=== PATIENT | male | born 1970 | race Caucasian/White ===

== ENCOUNTER 2017-03-21 22:48 | Inpatient (IN) | payer BC, OTHER ==
[~2017-03-21] VITALS: Ht 193 cm; Wt 136.1 kg
[2017-03-22] MEDS ORDERED: LORAZEPAM 2 MG/1 ML VIAL IM PRN (14:45)
[2017-03-22] MEDS ORDERED: LOPERAMIDE HCL 2 MG CAPSULE PO PRN (14:45)
[2017-03-22] MEDS ORDERED: MAG HYDROX/AL HYDROX/SIMETH 30 ML LIQUID UDC PO PRN (14:45)
[2017-03-22] MEDS ORDERED: ONDANSETRON 4 MG/2 ML VIAL IM PRN (14:45)
[2017-03-22] MEDS ORDERED: MAGNESIUM HYDROXIDE 30 ML LIQUID UDC PO PRN (14:45)
[2017-03-22] MEDS ORDERED: ACETAMINOPHEN 325 MG TABLET PO PRN (14:45)
[2017-03-22] MEDS ORDERED: LORAZEPAM 1 MG TABLET PO PRN (14:45)
[2017-03-22] MEDS ORDERED: DICYCLOMINE HCL 20 MG TABLET PO PRN (14:45)
[2017-03-22] MEDS ORDERED: MIRALAX 17 GM POWD.PACK PO PRN (14:45)
[2017-03-22 15:31] VITALS: BP 136/101
[2017-03-22] MEDS ORDERED: THIAMINE HCL 200 MG/2 ML VIAL IM ONE (15:36)
[2017-03-22 15:56] LABS: BASOPHILS % (AUTO) 0.2 % (0.0-2.0); EOSINOPHILS % (AUTO) 0.2 % (0.0-7.0); LYMPHOCYTES % (AUTO) 25.6 % (20.5-51.5); MEAN CORPUSCULAR HGB CONC 33 g/dL (32.0-37.0); MEAN CORPUSCULAR VOLUME 84.1 FL (82.0-92.0); MONOCYTES # (AUTO) 0.3 K/UL (0.1-1.30); MONOCYTES % (AUTO) 2.7 % (0.0-11.0); NEUTROPHILS # (AUTO) 8.4 K/UL (1.8-8.9); NEUTROPHILS % (AUTO) 71.3 % (38.5-71.5); PLATELET COUNT (AUTO) 370 K/UL (150-450); RED BLOOD CELL COUNT(AUTO) 6.07 MIL/UL (4.7-6.1); WHITE BLOOD COUNT (AUTO) 11.7 K/UL (4.0-11.2)
[2017-03-22 16:04] LABS: POTASSIUM 3.7 mmol/L (3.5-5.1)
[2017-03-22 16:31] VITALS: BP 146/93
[2017-03-22 17:39] LABS: *AMPHETAMINE, URINE NEGATIVE (NEGATIVE); *BARBITURATE, URINE NEGATIVE (NEGATIVE); *CANNABINOID, URINE POSITIVE (NEGATIVE); *COCCAINE, URINE NEGATIVE (NEGATIVE); *OPIATE, URINE NEGATIVE (NEGATIVE); *PHENCYCLIDINE SCREEN,URINE NEGATIVE (NEGATIVE)
[2017-03-22] MEDS ORDERED: FLUO40CA8 PO (18:20)
[2017-03-22] MEDS ORDERED: OMEP20TA20 PO (18:20)
[2017-03-22] MEDS ORDERED: CARV6.252 PO (18:20)
[2017-03-22] MEDS ORDERED: OMEP40CA37 PO (18:20)
[2017-03-22] MEDS ORDERED: LEVO50TA PO (18:20)
[2017-03-22 20:00] VITALS: BP 127/83
[2017-03-22] MEDS: GABAPENTIN 300 MG CAPSULE PO SCH (20:25)
[2017-03-22] MEDS: ONDANSETRON ODT 4 MG TAB.RAPDIS SL PRN (20:31)
[2017-03-22] MEDS ORDERED: LORAZEPAM 1 MG TABLET PO SCH (21:00)
[2017-03-22] MEDS: LORAZEPAM 1 MG TABLET PO PRN (23:01)
[2017-03-22] MEDS: diphenhydrAMINE 50 MG CAPSULE PO PRN (23:01)
[2017-03-23] VITALS (8 sets, daily range): BP systolic 135–150; BP diastolic 87–108
[2017-03-23 06:06] LABS: HEPATITIS B SURFACE AG Negative (Negative)
[2017-03-23] MEDS: LEVOTHYROXINE SODIUM 50 MCG TABLET PO SCH (06:48)
[2017-03-23] MEDS: PANTOPRAZOLE SODIUM 40 MG TABLET.DR PO SCH (06:49)
[2017-03-23] MEDS: LORAZEPAM 1 MG TABLET PO PRN (06:59)
[2017-03-23] MEDS: FOLIC ACID 1 MG TABLET PO SCH (08:29)
[2017-03-23] MEDS: GABAPENTIN 300 MG CAPSULE PO SCH ×2 (08:29→20:42)
[2017-03-23] MEDS: THIAMINE HCL 100 MG TABLET PO SCH (08:29)
[2017-03-23] MEDS: MULTIVITAMINS,THERAPEUTIC TABLET PO SCH (08:30)
[2017-03-23] MEDS: IBUPROFEN 600 MG TABLET PO PRN (08:30)
[2017-03-23] MEDS: CLONIDINE HCL 0.1 MG TABLET PO PRN ×2 (08:30→20:42)
[2017-03-23] MEDS: ONDANSETRON ODT 4 MG TAB.RAPDIS SL PRN (08:31)
[2017-03-23] MEDS: LOPERAMIDE HCL 2 MG CAPSULE PO PRN (08:34)
[2017-03-23] MEDS ORDERED: LORAZEPAM 1 MG TABLET PO SCH (09:00)
[2017-03-23] MEDS ORDERED: TUBERCULIN,PURIF.PROT.DERIV. 5 TU/0.1 ML TEST ID ONE (09:00)
[2017-03-23] MEDS: FLUOXETINE HCL 20 MG CAPSULE PO SCH (13:45)
[2017-03-23] MEDS ORDERED: INFLUENZA VACCINE 2017-2018 0.5 ML DISP.SYRIN IM ONE (13:45)
[2017-03-23] MEDS: LORAZEPAM 1 MG TABLET PO SCH ×3 (13:46→20:42)
[2017-03-23] MEDS: diphenhydrAMINE 50 MG CAPSULE PO PRN (23:17)
[2017-03-24] VITALS (7 sets, daily range): BP systolic 108–140; BP diastolic 52–97
[2017-03-24] MEDS: PANTOPRAZOLE SODIUM 40 MG TABLET.DR PO SCH (06:43)
[2017-03-24] MEDS: LEVOTHYROXINE SODIUM 50 MCG TABLET PO SCH (06:43)
[2017-03-24 08:19] LABS: BASOPHILS # (AUTO) 0.1 K/uL (0.0-8.0); EOSINOPHILS # (AUTO) 0.1 K/uL (0.0-0.7); EOSINOPHILS % (AUTO) 1.2 % (0.0-7.0); HEMATOCRIT 43.4 % (36.7-47.1); HEMOGLOBIN 14.9 g/dL (12.5-16.3); LYMPHOCYTES # (AUTO) 1.6 K/uL (20.0-40.0); MEAN CORPUSCULAR HEMOGLOBIN 28.9 uug (23.8-33.4); MEAN CORPUSCULAR HGB CONC 34 g/dL (32.5-36.3); MEAN CORPUSCULAR VOLUME 84.5 fL (73.0-96.2); MONOCYTES # (AUTO) 0.4 K/uL (2.0-10.0); MONOCYTES % (AUTO) 7.1 % (0.0-11.0); NEUTROPHILS # (AUTO) 3.8 K/uL (1.8-8.9); NEUTROPHILS % (AUTO) 63.7 % (38.5-71.5); PLATELET COUNT (AUTO) 205 K/uL (152-348); RED BLOOD CELL COUNT(AUTO) 5.14 MIL/uL (4.06-5.63)
[2017-03-24] MEDS: MULTIVITAMINS,THERAPEUTIC TABLET PO SCH (08:26)
[2017-03-24] MEDS: GABAPENTIN 300 MG CAPSULE PO SCH (08:26)
[2017-03-24] MEDS: THIAMINE HCL 100 MG TABLET PO SCH (08:26)
[2017-03-24] MEDS: LORAZEPAM 1 MG TABLET PO SCH ×3 (08:26→21:03)
[2017-03-24] MEDS: IBUPROFEN 600 MG TABLET PO PRN (08:26)
[2017-03-24] MEDS: FLUOXETINE HCL 20 MG CAPSULE PO SCH (08:26)
[2017-03-24] MEDS: FOLIC ACID 1 MG TABLET PO SCH (08:26)
[2017-03-24 08:45] LABS: BILIRUBIN,DIRECT 0.3 mg/dL (0.0-0.2); BILIRUBIN,TOTAL 1.4 mg/dL (0.2-1.0); CREATININE 0.8 mg/dL (0.6-1.3); MAGNESIUM 2.1 mg/dL (1.8-2.4); POTASSIUM 3.7 mmol/L (3.5-5.1); TOTAL PROTEIN, SERUM 6.7 g/dL (6.4-8.2)
[2017-03-24] MEDS ORDERED: LORAZEPAM 1 MG TABLET PO SCH (09:00)
[2017-03-24] MEDS: CLONIDINE HCL 0.1 MG TABLET PO PRN (12:04)
[2017-03-24] MEDS: BACLOFEN 10 MG TABLET PO SCH ×2 (14:33→21:03)
[2017-03-24] MEDS: GABAPENTIN 400 MG CAPSULE PO SCH ×2 (14:33→21:03)
[2017-03-24] MEDS ORDERED: hydrALAZINE HCL 50 MG TABLET PO PRN (16:45)
[2017-03-24] MEDS: CARVEDILOL 6.25 MG TABLET PO SCH (17:47)
[2017-03-24] MEDS: HYDROXYZINE PAMOATE 25 MG CAPSULE PO PRN (17:47)
[2017-03-24] MEDS: ONDANSETRON ODT 4 MG TAB.RAPDIS SL PRN (17:47)
[2017-03-24] MEDS ORDERED: PATIENT MAY USE OWN MED- MD OK PO SCH (18:00)
[2017-03-24] MEDS: MUPIROCIN 2% OINT 22 GM TUBE NS SCH (21:03)
[2017-03-25] VITALS: BP 129/88
[2017-03-25 04:00] VITALS: BP 122/82
[2017-03-25] MEDS: PANTOPRAZOLE SODIUM 40 MG TABLET.DR PO SCH (06:46)
[2017-03-25] MEDS: LEVOTHYROXINE SODIUM 50 MCG TABLET PO SCH (06:46)
[2017-03-25 08:00] VITALS: BP 133/84
[2017-03-25] MEDS: LORAZEPAM 1 MG TABLET PO SCH ×2 (08:40→20:44)
[2017-03-25] MEDS: FLUOXETINE HCL 20 MG CAPSULE PO SCH (08:40)
[2017-03-25] MEDS: BACLOFEN 10 MG TABLET PO SCH ×3 (08:40→20:44)
[2017-03-25] MEDS: CARVEDILOL 6.25 MG TABLET PO SCH ×2 (08:40→18:01)
[2017-03-25] MEDS: MULTIVITAMINS,THERAPEUTIC TABLET PO SCH (08:40)
[2017-03-25] MEDS: THIAMINE HCL 100 MG TABLET PO SCH (08:40)
[2017-03-25] MEDS: FOLIC ACID 1 MG TABLET PO SCH (08:40)
[2017-03-25] MEDS: GABAPENTIN 400 MG CAPSULE PO SCH ×3 (08:40→20:44)
[2017-03-25] MEDS: MUPIROCIN 2% OINT 22 GM TUBE NS SCH ×2 (08:41→20:45)
[2017-03-25] MEDS ORDERED: LORAZEPAM 1 MG TABLET PO SCH (09:00)
[2017-03-25 12:28] VITALS: BP 132/98
[2017-03-25] MEDS: HYDROXYZINE PAMOATE 25 MG CAPSULE PO PRN (14:03)
[2017-03-25 16:00] VITALS: BP 138/97
[2017-03-25] MEDS: LOPERAMIDE HCL 2 MG CAPSULE PO PRN (18:21)
[2017-03-25 20:00] VITALS: BP 138/96
[2017-03-25] MEDS: diphenhydrAMINE 50 MG CAPSULE PO PRN (20:49)
[2017-03-26] VITALS: BP 128/92
[2017-03-26] MEDS: PANTOPRAZOLE SODIUM 40 MG TABLET.DR PO SCH (06:54)
[2017-03-26] MEDS: LEVOTHYROXINE SODIUM 50 MCG TABLET PO SCH (06:54)
[2017-03-26 08:00] VITALS: BP 130/95
[2017-03-26] MEDS ORDERED: LORAZEPAM 1 MG TABLET PO SCH ×2 (09:00)
[2017-03-26] MEDS: FOLIC ACID 1 MG TABLET PO SCH (09:20)
[2017-03-26] MEDS: FLUOXETINE HCL 20 MG CAPSULE PO SCH (09:20)
[2017-03-26] MEDS: MUPIROCIN 2% OINT 22 GM TUBE NS SCH ×2 (09:20→20:50)
[2017-03-26] MEDS: BACLOFEN 10 MG TABLET PO SCH ×3 (09:21→20:48)
[2017-03-26] MEDS: GABAPENTIN 400 MG CAPSULE PO SCH ×3 (09:21→20:48)
[2017-03-26] MEDS: CARVEDILOL 6.25 MG TABLET PO SCH ×2 (09:21→17:13)
[2017-03-26] MEDS: MULTIVITAMINS,THERAPEUTIC TABLET PO SCH (09:21)
[2017-03-26] MEDS: THIAMINE HCL 100 MG TABLET PO SCH (09:21)
[2017-03-26] MEDS ORDERED: IBUPROFEN 800 MG TABLET PO PRN (11:00)
[2017-03-26] MEDS ORDERED: IBUPROFEN 600 MG TABLET PO PRN (11:00)
[2017-03-26 12:00] VITALS: BP 128/92
[2017-03-26 16:00] VITALS: BP 135/95
[2017-03-26] MEDS: HYDROXYZINE PAMOATE 25 MG CAPSULE PO PRN (17:13)
[2017-03-26] MEDS ORDERED: HYDR-3895 PO (17:32)
[2017-03-26] MEDS ORDERED: GABA-536 PO (17:32)
[2017-03-26] MEDS ORDERED: BACL10TA PO (17:32)
[2017-03-26 20:00] VITALS: BP 143/91
[2017-03-26] MEDS: diphenhydrAMINE 50 MG CAPSULE PO PRN (20:48)
[2017-03-27] MEDS: PANTOPRAZOLE SODIUM 40 MG TABLET.DR PO SCH (06:10)
[2017-03-27] MEDS: LEVOTHYROXINE SODIUM 50 MCG TABLET PO SCH (06:11)
[2017-03-27] MEDS: MULTIVITAMINS,THERAPEUTIC TABLET PO SCH (08:21)
[2017-03-27] MEDS: CARVEDILOL 6.25 MG TABLET PO SCH (08:21)
[2017-03-27] MEDS: FLUOXETINE HCL 20 MG CAPSULE PO SCH (08:21)
[2017-03-27] MEDS: FOLIC ACID 1 MG TABLET PO SCH (08:22)
[2017-03-27] MEDS: HYDROXYZINE PAMOATE 25 MG CAPSULE PO PRN (08:22)
[2017-03-27] MEDS: GABAPENTIN 400 MG CAPSULE PO SCH (08:22)
[2017-03-27] MEDS: BACLOFEN 10 MG TABLET PO SCH (08:22)
[2017-03-27] MEDS: THIAMINE HCL 100 MG TABLET PO SCH (08:22)
[2017-03-27] MEDS: MUPIROCIN 2% OINT 22 GM TUBE NS SCH (08:25)
[2017-03-27] MEDS ORDERED: LORAZEPAM 1 MG TABLET PO SCH (09:00)
[2017-03-27 09:36] VITALS: BP 142/98
== END 2017-03-27 11:02 | disposition other institution (70) | DRG 895 ==
LOC: SRC 03-22 14:20
PROVIDERS: ADMIT Internal Medicine; ATTEND Internal Medicine
PROC: HZ2ZZZZ Detoxification Services for Substance Abuse Treatment (ICD-10-PCS; principal; 2017-03-22)
PROC: HZ41ZZZ Group Counseling for Substance Abuse Treatment, Behavioral (ICD-10-PCS; 2017-03-23)
PROC: HZ31ZZZ Individual Counseling for Substance Abuse Treatment, Behavioral (ICD-10-PCS; 2017-03-23)
DX: F10.230 Alcohol dependence with withdrawal, uncomplicated (principal); F33.2 Major depressive disorder, recurrent severe without psychotic features; K70.10 Alcoholic hepatitis without ascites; I15.9 Secondary hypertension, unspecified; F12.10 Cannabis abuse, uncomplicated; F13.230 Sedative, hypnotic or anxiolytic dependence with withdrawal, uncomplicated; F17.210 Nicotine dependence, cigarettes, uncomplicated; F11.90 Opioid use, unspecified, uncomplicated; Z22.322 Carrier or suspected carrier of Methicillin resistant Staphylococcus aureus; K27.7 Chronic peptic ulcer, site unspecified, without hemorrhage or perforation; E03.9 Hypothyroidism, unspecified; D72.823 Leukemoid reaction; R73.9 Hyperglycemia, unspecified; Z59.1 Inadequate housing; Y90.9 Presence of alcohol in blood, level not specified; F41.9 Anxiety disorder, unspecified; Z91.5 Personal history of self-harm; Z98.84 Bariatric surgery status
CPT/HCPCS: 36415; 70030-TC; 76700; 80307; 80349; 83735; 85025; 86580; 86592; 86705; 86803; 87340; 87806; 90686; G0480; J3411; Q0162; Q0163